=== PATIENT | male | born 1940 | race Two or more races ===

== ENCOUNTER 2020-04-06 02:26 | Inpatient (IN) | payer OTHER, MEDICARE, SELFPAY ==
[~2020-04-06] VITALS: Ht 160 cm; Wt 74.8 kg
[2020-04-06 02:29] VITALS: Ht 160 cm; Wt 74.8 kg
--- NOTE | 2020-04-06 03:39 | NUR ---
RECEIVED PATIENT FROM TENT VIA WHEELCHAIR. HYPOXIA. PLACED ON 6 LITERS OXYGEN VIA NC. NO DISTRESS. PT PLACED IN GOWN, PULSE OX, DIRECTOR OF AGRICULTURE AND BP CUFF.
[2020-04-06 04:06] LABS: BASOPHIL % 0.3 % (0.2-1.5); PLATELET COUNT 210 x10^3mcL (152-348); RED CELL DISTRIBUTION WIDTH 13.9 % (12.1-16.2)
[2020-04-06 04:08] LABS: rbc morphology (normal/abnorm) NORMAL (NORMAL)
[2020-04-06 04:26] LABS: CALCIUM 8.2 mg/dL (8.5-10.1); CARBON DIOXIDE 25.2 mmol/L (21-32); CHLORIDE SERUM 99 mmol/L (98-107); CREATININE SERUM 1.4 mg/dL (0.7-1.3); GLUCOSE SERUM 216 mg/dL (74-106); POTASSIUM SERUM 3.9 mmol/L (3.5-5.1); SODIUM SERUM 135 mmol/L (136-145)
[2020-04-06 04:35] LABS: ALKALINE PHOSPHATASE 230 U/L (46-116); ALT/SGPT 56 U/L (16-63); AST/SGOT 52 U/L (15-37); BILIRUBIN TOTAL 1.08 mg/dL (0.20-1.00); LACTIC DEHYDROGENASE (LDH) 546 U/L (100-190); TOTAL PROTEIN, SERUM 7.4 g/dL (6.4-8.2)
[2020-04-06 04:36] LABS: ALBUMIN 2.6 g/dL (3.4-5.0)
[2020-04-06 04:44] LABS: C REACTIVE PROTEIN 29.9 mg/dL (<=0.9)
[2020-04-06] MEDS ORDERED: ASPIRIN ADULT L81 M3 PO (05:07)
[2020-04-06] MEDS ORDERED: ATORVASTATIN CA20 M1 PO (05:07)
[2020-04-06] MEDS ORDERED: GLIPIZIDE10 M3 PO (05:08)
[2020-04-06] MEDS ORDERED: ENALAPRIL MALEA20 MG PO (05:08)
--- NOTE | 2020-04-06 07:20 | NUR ---
REPORT GIVEN TO RAGHAV ELY
--- NOTE | 2020-04-06 07:33 | NUR ---
PT AAOX4, SERVED BREAKFAST TRAY. DENIES PAIN/DISCOMFORT. TOLERATING 6L O2 VIA NC. DEMONSTRATED UNDERSTANDING CORPORATE INTERN LIGHT. NO FURTHER NEEDS NOTED.
[2020-04-06 10:42] LABS: CHOLESTEROL/HDL RATIO 2.5
--- NOTE | 2020-04-06 10:55 | NUR ---
PT ASSISTED TO BSC. TOLERATED STANDING UP. NOTED SOB WITH EXERTION. DENIED DIZZINESS. PT HAD A FORMED BROWN STOOL; APPEARED SOFT.
--- NOTE | 2020-04-06 13:30 | NUR ---
PT ASSISTED BY JENNIFER TO BSC FOR A LARGE BROWN AND FORMED BM WITHOUT INCIDENT
--- NOTE | 2020-04-06 15:00 | NUR ---
PT URINATED IN URINAL. APPROX 75ML URINE OUTPUT, SIMRAN & HAZY
[2020-04-06 16:22] LABS: UA SPECIFIC GRAVITY 1.025 (1.005-1.035); microscopic required? YES; urine erythrocyte NEGATIVE (NEGATIVE)
[2020-04-06 17:20] LABS: AMPHETAMINE QUAL UR NONE DETECTED (See below)
--- NOTE | 2020-04-06 18:00 | NUR ---
PT ASLEEP ON GURNEY S/F. AROUSABLE TO VERBAL STIMULI. MADE AWARE OF DINNER TRAY. STATES HE DOES NOT WANT TO EAT RIGHT NOW.
--- NOTE | 2020-04-06 18:40 | NUR ---
PT PLACED ON 15L O2 VIA NRB D/T LOW O2 DESAT WITH GOOD WAVE FORM. PT NOTED TO BE ASLEEP. WHEN AWOKEN, PT STATED HE DID NOT HAVE TROUBLE BREATHING. RESPIRATIONS UNLABORED.
--- NOTE | 2020-04-06 19:18 | NUR ---
REPORT GIVEN TO ANYA ELY
--- NOTE | 2020-04-06 20:39 | NUR ---
FIRST CONTACT WITH PT, PT IS SIDE LYING IN GURNEY WITH EYES CLSED. PT EASILY AROUSABLE AND STATES THAT HE IS OK AT THIS TIME. VSS AND WILL CONTINUE TO MONITOR.
--- NOTE | 2020-04-06 21:52 | NUR ---
PT IS SIDE LYING IN GURNEY WITH EYES CLOSED. PT VSS AND NO ACUTE DISTRESS NOTED. WILL CONTINUE TO MONITOR.
--- NOTE | 2020-04-07 01:02 | NUR ---
PT IS SIDE LYING IN GURNEY WITH EYES CLOSED. PT APPEARS WEAK BUT EASILY AROUSABLE. PT BP IS ELEVATED AT 171/66, DR. HOPE IN ED AND MADE AWARE. AWAITING MEDICATION ORDER. PT ON FULL CARDIAC AND O2 MONITORS. WILL CONTINUE TO MONITOR CLOSELY.
--- NOTE | 2020-04-07 02:17 | NUR ---
PT LAYING IN GURNEY WITH EYES CLOSED. PT EASILY AROUSABLE AND VSS, PT ON 5 LITERS O2 VIA NRB. PT TOLERATING WELL AT THIS TIME. WILL CONTINUE TO MONITOR.
--- NOTE | 2020-04-07 03:27 | NUR ---
PT REQUESTED WATER AND A WRINAL. PT VOIDED [id number] ML OF DARK ORANGE URINE. REPOSITIONED PT TO POSITION OF COMFORT. PT EYES CLOSED AND WILL CONTINUE TO MONITOR. PT 02 SAT IMPROVING TO 88% AT THIS TIME.
--- NOTE | 2020-04-07 06:01 | NUR ---
PT REMAINS SIDE LYING IN GURNEY. PT VSS, AND NO ACUTE DISTRESS NOTED. WILL CONTINUE TO MONITOR CLOSELY
--- NOTE | 2020-04-07 07:40 | NUR ---
GAVE REPORT TO ASIM ELY TO ASSUME CARE OF PT.
--- NOTE | 2020-04-07 11:00 | NUR ---
ATTEMPTS MADE TO CALL PRIMARY NURSE FOR ADMIT TO ROOM. NURSES REFUSES TO COME TO PHONE. GIOVANY ELY PRIMARY UNHELPFUL AT THIS TIME. DECLINED TO ASSIST IN ASSUMING REPORT.
--- NOTE | 2020-04-07 11:10 | NUR ---
NUMBEROUS CALLS PLACED. BY MYSELF RN AND UNIT SEC PJ. STAFF ON FLOOR CONTINUE TO HANG PHONE UP. NUMEROUS ATTEMPTS TO ELICIT ASSISTANCE FROM BRYANT ELY UNSUCCESSFUL.
--- NOTE | 2020-04-07 11:49 | NUR ---
I CALLED REPORT TO ANGI REGARDING THIS PT. PT WILL BE GOING TO ROOM 253B VIA LYNNE WITH JASBIR AND EMT STEPHANIE.
--- NOTE | 2020-04-07 12:03 | NUR ---
REPORT RECIEVED FROM CHARGE NURSE INDERJIT: PER CHARGE NURSE THE PRIMARY RN TOKO WAS BUSY. REPORT WAS ATTEMPTED TO BE RECIVED BUT WIRELESS PHONE KEPT DISCONNECTING. CHARGE NURSE DENTON ISRAEL. PATIENT IN 253B, ALERT AND ORIENTED AZERI SPEAKING. ON HF15L
--- NOTE | 2020-04-07 12:29 | NUR ---
ELECITED ASSISTANCE IN INDERJIT CALLING REPORT TO FLOOR. UPON ARRIVAL TO FLOOR REGISTRY PRIMARY NURSE NAUN REMAINED RUDE AND OPPOSITIONAL. RAVINDRA OFFERED NO ASSISTANCE AND BECAME OBSTINANT. AND BEGAN TO DEGRADE THE [employer].
[2020-04-07 13:41] VITALS: BP 99/60
[2020-04-07 16:31] VITALS: BP 97/55
[2020-04-07 16:47] LABS: BASOPHIL % 0.2 % (0.2-1.5); PLATELET COUNT 211 x10^3mcL (152-348); RED CELL DISTRIBUTION WIDTH 13.9 % (12.1-16.2)
[2020-04-07 16:54] LABS: CALCIUM 8.1 mg/dL (8.5-10.1); CARBON DIOXIDE 25.2 mmol/L (21-32); CHLORIDE SERUM 106 mmol/L (98-107); GLUCOSE SERUM 141 mg/dL (74-106); MAGNESIUM 2.7 mg/dL (1.8-2.4); POTASSIUM SERUM 3.8 mmol/L (3.5-5.1); SODIUM SERUM 141 mmol/L (136-145)
--- NOTE | 2020-04-07 19:30 | NUR ---
RECIEVED PT FROM AM RN. PT IN ISOLATION PRECAUTIONS FOR POSSIBLE COVID. PT A&OX4, LUXEMBOURGISH SPEAKING. S1S2 HEARD, DENIES CHEST PAIN. LUNG SOUNDS DIMINISHED LO, BREATHING E/U ON 15L NRB. PT SATTING WELL. DENIES SOB AT THIS TIME. BOWEL SOUNDS ACTIVE, ABDOMEN SOFT. PT ON TELE #21 NSR. PT HAS IV TO RAC INTACT AND PATENT SALINE LOCKED. PT HAS NO CONCERNS AT THIS TIME. CALL LIGHT IN REACH, WILL CONTINUE TO MONITOR.
[2020-04-07 22:21] VITALS: BP 121/48
--- NOTE | 2020-04-08 06:40 | NUR ---
PT REMAINED STABLE THROUGHOUT THE NIGHT, NO SIGNIFICANT CHANGES. NO EPISODES OF ACUTE DISTRESS OR DESATURATION. PTS BLOOD GLUCOSE CHECKED THIS AM NO COVERAGE NEEDED. PTS IV TO RAC INTACT AND PATENT, SALINE LOCKED. PT HAS NO QUESTIONS OR CONCERNS. CALL LIGHT IN REACH. WILL CONTINUE TO MONITOR. WILL ENDORSE ALL CARE TO AM RN.
[2020-04-08 06:47] VITALS: BP 139/53
--- NOTE | 2020-04-08 08:18 | NUR ---
PATIENT IS A 79 YEAR OLD MALE ADMITTED FOR COVID PNA, + COVID ON 04/06 RENNY, PCR IS PENDING AT THIS TIME. PATIENT DIMINISHED LUNGS ON NRB 15L. GENERALIZED WEAKNESS. PATIENT STARTED REMDESEVIR YESTERDAY FIRST DOSE WILL CONTINUE TODAY. NO ORDER FOR CONVALESANT PLASMA AT THIS TIME. PATIENT ALERT AND ORIENTED [place]TH KOREAN SPEAKING, IV INTACT AND PATENT RAC.
[2020-04-08 09:32] VITALS: BP 139/85
[2020-04-08 12:00] VITALS: BP 102/51
--- NOTE | 2020-04-08 12:21 | NUR ---
PATIENT DSATURATING TO 80%-77% CALLED RT DUE TO HIM BEING ON NRB 15L. RT COULD NOT GET HIM ABOVE 88% HE WAS PLACED ON OXYMIZER 10L WITH A CHANCE TO INCREASE.
[2020-04-08 13:13] LABS: BILIRUBIN DIRECT 0.67 mg/dL (0.0-0.2); BILIRUBIN TOTAL 0.87 mg/dL (0.20-1.00); TOTAL PROTEIN, SERUM 6.2 g/dL (6.4-8.2)
[2020-04-08 13:37] LABS: ALBUMIN 1.8 g/dL (3.4-5.0)
[2020-04-08 17:06] LABS: BASOPHIL % 0.1 % (0.2-1.5); PLATELET COUNT 226 x10^3mcL (152-348); RED CELL DISTRIBUTION WIDTH 14.4 % (12.1-16.2)
[2020-04-08 17:15] LABS: CALCIUM 8.1 mg/dL (8.5-10.1); CARBON DIOXIDE 26.2 mmol/L (21-32); CHLORIDE SERUM 109 mmol/L (98-107); GLUCOSE SERUM 179 mg/dL (74-106); MAGNESIUM 2.6 mg/dL (1.8-2.4); POTASSIUM SERUM 4.2 mmol/L (3.5-5.1); SODIUM SERUM 144 mmol/L (136-145)
[2020-04-08 17:31] VITALS: BP 114/58
--- NOTE | 2020-04-08 19:40 | NUR ---
RECEIVED REPORT FROM DAY SHIFT RN. PT RESTING IN BED WITH EYES CLOSED. AROUSABLE WITH VERBAL STIMULI. ORIENTED X4. NO C/O CHEST PAIN. DIMINISHED LUNG SOUNDS LO. ON O2 15L VIA OXYMIZER + 12 L NONREBREATHER MASK. IV TO RAC, PATENT AND INTACT. SAFETY MEASURES IN LACE. BED IN LOWEST POSITION. SIDE RAILS UP X2. DEMONSTRATED HOW TO CALL IF ASSISTANCE IS NEEDED. CALL LIGHT WITHIN REACH.
--- NOTE | 2020-04-08 19:45 | NUR ---
RECEIVED REPORT FROM DAY SHIFT RN. PT RESTING IN BED WATCHING TV. AA&O X4. NO SOB ON O2 2L VIA NC. DIMINISHED LUNG SOUNDS LO. 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 MULTIPLE SCATTERED DRY SCABD TO BUE AND BLE. NO IV ACCESS. PT REFUSING IV RESTART. SAFETY MEASURES IN PLACE. BED IN LOWEST POSITION. SIDE RAILSUP X2. INSTRUCTED PT TO CALL FOR ASSISTANCE. COMMODE AT BEDSIDE.
[2020-04-08 21:51] VITALS: BP 126/55
[2020-04-09 05:10] VITALS: BP 124/51
--- NOTE | 2020-04-09 06:59 | NUR ---
PT RESTED IN LONG INTERVALS. NO C/O CHEST PAIN. ON O2 15L OXYMIZER + 12L NRB MASK. O2 SAT 92-97%. IV TO RAC, SALINE LOCKED. SAFETY MEASURES MAINTAINED. CALL LIGHT WITHIN REACH. WILL ENDORSE CONTINUITY OF CARE TO DAY SHIFT RN.
[2020-04-09 07:35] LABS: BASOPHIL % 0.1 % (0.2-1.5); PLATELET COUNT 237 x10^3mcL (152-348)
[2020-04-09 07:53] LABS: CALCIUM 8.3 mg/dL (8.5-10.1); CARBON DIOXIDE 27.3 mmol/L (21-32); CHLORIDE SERUM 107 mmol/L (98-107); CREATININE SERUM 0.9 mg/dL (0.7-1.3); GLUCOSE SERUM 165 mg/dL (74-106); POTASSIUM SERUM 4.1 mmol/L (3.5-5.1); SODIUM SERUM 142 mmol/L (136-145)
[2020-04-09 08:13] LABS: RED CELL DISTRIBUTION WIDTH 14.6 % (12.1-16.2)
[2020-04-09 08:46] VITALS: BP 122/44
[2020-04-09 09:27] LABS: BILIRUBIN DIRECT 0.45 mg/dL (0.0-0.2); BILIRUBIN TOTAL 0.65 mg/dL (0.20-1.00); TOTAL PROTEIN, SERUM 6.3 g/dL (6.4-8.2)
[2020-04-09 09:30] LABS: ALBUMIN 1.9 g/dL (3.4-5.0)
--- NOTE | 2020-04-09 10:46 | NUR ---
PATIENT IS AOX4, SINUS JORGE, RESPIRATIONS SHALLOW/UNLABORED ON 15LNONREBREATHER AND 15L OXYMIZER. ENCOURAGED PATIENT TO DO DEEP BREATHING. PATIENT VERBALIZED UNDERSTANDING. TOLERATING MEALS WELL WITH NO N/V. UPDATED ON PLAN OF CARE. WILL CONTINUE TO MONITOR.
[2020-04-09 13:27] VITALS: BP 123/62
[2020-04-09 16:20] VITALS: BP 101/70
--- NOTE | 2020-04-09 17:21 | NUR ---
PLASMA TRANSFUSED WITH NO S/S REACTION. VITAL SIGNS STABLE.
--- NOTE | 2020-04-09 18:34 | NUR ---
PATIENT REMAINS ON 15L NRB + 15L OXYMIZER SPO2 89-93% TOLERATED PRONING. SINUS JORGE-SINUS RYTHM. ATE MEALS WELL WITH NO N/V. UPDATED DAUGHTER ARIEL OF PLAN OF CARE. WILL ENDORSE TO NIGHT RN.
--- NOTE | 2020-04-09 19:35 | NUR ---
RECEIVED REPORT FROM DAY SHIFT RN. PT RESTING IN BED. AA&O X4. ON 15L OXYMIZER + 15L NONREBREATHER MASK. NO C/O PAIN AT THIS TIME. IV SALINE LOCKED TO RFA. SAFETY MEASURES IN PLACE. BED IN LOWEST POSITION. SIDE RAILS UP X2. DEMONSTRATED HOW TO CALL FOR ASSISTANCE. CALL LIGHT WITHIN REACH.
[2020-04-09 21:54] VITALS: BP 121/54
[2020-04-10 06:02] VITALS: BP 136/63
--- NOTE | 2020-04-10 06:59 | NUR ---
PT RESTED IN LONG INTERVALS. NO ACUTE CHANGES NOTED DURING SHIFT. ON 15L OXYMIZER AND 15L NRB MASK. 02 SAT 99%. IV TO RFA, SALINE LOCKED. SAFETY MEASURES MAINTAINED. CALL LIGHT WITHIN REACH. WILL ENDORSE CONTINUITY OF CARE TO ONCOMING RN.
[2020-04-10 07:48] VITALS: BP 124/57
[2020-04-10 07:51] LABS: BASOPHIL % 0.2 % (0.2-1.5); PLATELET COUNT 279 x10^3mcL (152-348); RED CELL DISTRIBUTION WIDTH 14.5 % (12.1-16.2)
[2020-04-10 08:05] LABS: CALCIUM 7.8 mg/dL (8.5-10.1); CARBON DIOXIDE 28.9 mmol/L (21-32); CHLORIDE SERUM 109 mmol/L (98-107); CREATININE SERUM 0.8 mg/dL (0.7-1.3); GLUCOSE SERUM 70 mg/dL (74-106); MAGNESIUM 2.7 mg/dL (1.8-2.4); PHOSPHOROUS 3.2 mg/dL (2.5-4.9); SODIUM SERUM 143 mmol/L (136-145)
--- NOTE | 2020-04-10 08:17 | NUR ---
RECEIVED AWAKE AND ALERT. ON O2 15L NRB AND 15L OXYMIZER SATS 88-90%. MILD SOB NOTED WITH ACTIVITIES. VS WNL. NO C/O PAIN OR DISCOMFORT AT THIS TIME. CALL LIGHT WITHIN REACH. WILL CONTINUE WITH PLAN OF CARE.
[2020-04-10 08:51] LABS: BILIRUBIN DIRECT 0.31 mg/dL (0.0-0.2); BILIRUBIN TOTAL 0.5 mg/dL (0.20-1.00)
[2020-04-10 08:58] LABS: ALBUMIN 1.9 g/dL (3.4-5.0); TOTAL PROTEIN, SERUM 6.1 g/dL (6.4-8.2)
[2020-04-10 12:00] VITALS: BP 135/57
[2020-04-10 17:51] VITALS: BP 127/48; BP 26127/4
--- NOTE | 2020-04-10 19:10 | NUR ---
PT. REPORT RECIEVED FROM DAY SHIFT NURSE, PT. RESTING IN BED, A&OX4, EASILY AROUSABLE, UZBEK SPEAKING, BUT ABLE TO LET NEEDS KNOWN, DENIES WILLARD/ DIZZINESS, RR EVEN AND UNLABORED ON 15 L NRB & 15 L OXYMIZER, TELE 21 SB, DENIES CHEST PAIN/ PRESSURE, RFA 22 G INTACT AND WNL, BED IN LOWEST POSITION, CALL LIGHT WITHIN REACH, SR UPX2, WILL CONT TO MONITOR.
--- NOTE | 2020-04-10 19:13 | NUR ---
PT REMAINS IN 15L NSR AND 15L OXYMIZER, STATS AT 88-90%. VITAL SIGNS BP, AND HR WITHIN NORMAL LIMITS. PT ENCOURAGED TO SIDE SHIFT TO RIGHT AND LEFT SIDE, AND TURN TO PRONE POSTION AT LEAST EVERY 2 HOURS. WILL ENDORSE CARE TO INCOMING NURSE.
--- NOTE | 2020-04-10 19:35 | NUR ---
NURSING CO-SIGN THE DOCUMENTATION ENTERED BY JHOANA SEQUEIRA HAS BEEN REVIEWED. REVIEWED/CO-SIGNED BY: Lary Boone DOCUMENTATION DONE BY:DANIELA SPANN
[2020-04-10 20:31] VITALS: BP 122/49
--- NOTE | 2020-04-11 03:58 | NUR ---
PT. RESTING IN BED, NO ACUTE CHANGE/ DISTRESS NOTED, RR EVEN AND UNLABORED ON 15 L NRB + 15 L OXY, CHEST RISE SYMT, TELE 21 SB, RFA IV INTACT AND WNL, BED IN LOWEST POSITION, CALL LIGHT WITHIN REACH, SR UPX2, WILL CONT TO MONITOR.
--- NOTE | 2020-04-11 04:35 | NUR ---
PT. SPO2 AT 75% RT NOTIFIED AND GOT AN ORDER FROM MD FOR RT SERVICE, CURRENTLY WAITING FOR RT TO COME SEE PT. WILL CONT TO MONITOR.
--- NOTE | 2020-04-11 05:09 | NUR ---
RT AT BEDSIDE, RT ASKED TO NOTIFY THE DRLiane ABOUT BIPAP ORDER, DR. GLASS HAS BEEN NOTIFIED.
[2020-04-11 05:18] VITALS: BP 178/70
--- NOTE | 2020-04-11 05:30 | NUR ---
PT. HAS BEEN MOVED AND IS IN BIPAP, PT. SPO2 CURRENTLY 96%, WILL CONT TO MONITOR.
[2020-04-11 05:35] VITALS: BP 178/70
--- NOTE | 2020-04-11 07:58 | NUR ---
RECEIVED AWAKE AND ALERT. ON BIPAP AT FIO2 OF 100% SATS FROM 92-94%. VS WNL. NO C/O PAIN OR DISCOMFORT AT THIS TIME. CALL LIGHT WITHIN REACH AND SAFETY MEASURES IN PLACE. WILL CONTINUE WITH PLAN OF CARE.
[2020-04-11 08:42] VITALS: BP 131/54
[2020-04-11 13:16] VITALS: BP 133/49
[2020-04-11 13:49] LABS: CALCIUM 7.9 mg/dL (8.5-10.1); CARBON DIOXIDE 31.5 mmol/L (21-32); CHLORIDE SERUM 103 mmol/L (98-107); CREATININE SERUM 0.8 mg/dL (0.7-1.3); GLUCOSE SERUM 86 mg/dL (74-106); MAGNESIUM 2.4 mg/dL (1.8-2.4); PHOSPHOROUS 4.4 mg/dL (2.5-4.9); POTASSIUM SERUM 4.2 mmol/L (3.5-5.1); SODIUM SERUM 142 mmol/L (136-145)
[2020-04-11 13:50] LABS: BILIRUBIN DIRECT 0.51 mg/dL (0.0-0.2); BILIRUBIN TOTAL 0.7 mg/dL (0.20-1.00); TOTAL PROTEIN, SERUM 6.3 g/dL (6.4-8.2)
[2020-04-11 13:54] LABS: ALBUMIN 1.9 g/dL (3.4-5.0)
[2020-04-11 13:56] LABS: BASOPHIL % 0.2 % (0.2-1.5); PLATELET COUNT 264 x10^3mcL (152-348)
--- NOTE | 2020-04-11 13:58 | NUR ---
FAM CATH INSERTED PER ORDER AND DRAINING CLEAR YELLOW URINE TO GRAVITY. PT TOLERATED WELL.
[2020-04-11 14:14] LABS: RED CELL DISTRIBUTION WIDTH 14.8 % (12.1-16.2)
[2020-04-11 16:37] VITALS: BP 142/62
--- NOTE | 2020-04-11 18:41 | NUR ---
PT REMAIN AWAKE AND ALERT. ON BIPAP AT 16/10 , RATE 16 AND FIO2 100% SATS 98%. VS REMAINS WNL. SAFETY MEASURES IN PLACE. CALL LIGHT WITHIN REACH. WILL BE ENDORSED TO INCOMING SHIFT.
--- NOTE | 2020-04-11 19:53 | NUR ---
RECEIVED PT FROM DAY SHIFT NURSE. PT A/OX4. ABLE TO MAKE NEEDS KNOWN. SPEECH CLEAR. ON TELE#21 READING NSR AT 60 BPM. PT DENIES CHEST PAIN OR PRESSURE AT THIS TIME. PULSES PALPABLE. NO EDEMA NOTED. RR EVEN AND UNLABORED ON BIPAP FIO2 100, O2 SATURATION 98%. NO SIGNS OF RESP DISTRESS NOTED. FAM CATH IN PLACE DRAINING YELLOW URINE. GENERALIZED WEAKNESS NOTED. SKIN INTACT. NO C/O PAIN OR DISCOMFORT. IV TO RFA SALINE LOCKED, PATENT AND INTACT. CALL LIGHT WIHIN REACH. BED IN LOWEST POSITION. ON DROPLET/CONTACT PRECAUTIONS FOR COVID. WILL CONTINUE TO MONITOR.
[2020-04-11 21:34] VITALS: BP 114/66
--- NOTE | 2020-04-12 00:48 | NUR ---
PT REPORTED NAUSEA/VOMITTING AT THIS TIME. PROVIDED PT WITH NEW GOWN AND BLANKETS. MEDICATED PT PER JUN. INSTRUCTED PT TO REMOVE BIPAP MASK AND VOMIT IN EMESIS BAG. PT VERBALIZED UNDERSTANDING. PT REPORTED NOT FEELING WELL. CALL LIGHT WITHIN REACH. BED IN LOWEST POSITION. WILL CONTINUE TO MONITOR.
[2020-04-12 06:18] VITALS: BP 148/71
[2020-04-12 07:15] LABS: BASOPHIL % 0.4 % (0.2-1.5); PLATELET COUNT 251 x10^3mcL (152-348)
[2020-04-12 07:37] LABS: RED CELL DISTRIBUTION WIDTH 14.9 % (12.1-16.2)
[2020-04-12 07:41] LABS: CALCIUM 8.2 mg/dL (8.5-10.1); CARBON DIOXIDE 27.8 mmol/L (21-32); CHLORIDE SERUM 107 mmol/L (98-107); GLUCOSE SERUM 132 mg/dL (74-106); MAGNESIUM 2.9 mg/dL (1.8-2.4); PHOSPHOROUS 4.2 mg/dL (2.5-4.9); POTASSIUM SERUM 4.3 mmol/L (3.5-5.1); SODIUM SERUM 146 mmol/L (136-145)
--- NOTE | 2020-04-12 07:54 | NUR ---
PT RESTING IN BED AT THIS TIME. PT C/O BEING TIRED, PROVIDED PT WITH REASSURANCE AND WORDS OF ENCOURAGEMENT. PT REPORTED N/V AT THIS TIME, WILL ENDORSE CARE TO ONCOMING SHIFT NURSE. IV PATENT AND INTACT, NO SIGNS OF INFILTRATION NOTED. FAM CATH IN PLACE DRAINGING YELLOW URINE. RR EVEN AND MILDLY LABORED ON BIPAP FIO2 100% O2 SATURATION 93%. PT DESATURATED TWICE THROUGHOUT THE NIGHT, REINFORCED BIPAP MASK. O2 SAT INCREASED BACK TO 90'S. CALL LIGHT WITHIN REACH. CARE ENDORSED TO DAY SHIFT NURSE.
[2020-04-12 08:11] VITALS: BP 147/63
[2020-04-12 09:15] LABS: CREATININE SERUM 0.9 mg/dL (0.7-1.3)
--- NOTE | 2020-04-12 09:22 | NUR ---
RECEIVED AWAKE AND ALERT. C/O NAUSEA AND HAD VOMITTED APPROX 20ML OF BROWN EMESIS. ZOFRAN GIVEN IVP WITH FAIR RELIEF. PT RECEIVED ON BIPAP AND O2 SATS 92% ON CURRENT SETTING. OCC. DRY COUGH NOTED. NO C/O PAIN AT THIS TIME. CALL LIGHT WITHIN REACH AND SAFETY MEASURES IN PLACE. WILL CONTINUE WITH PLAN OF CARE.
[2020-04-12 12:06] VITALS: BP 135/61
--- NOTE | 2020-04-12 12:38 | NUR ---
PER RT PT IS UNSTABLE FOR TRANFER TO CT. DR. BONILLA AWARE. PT REPOSITIONED IN BED FOR COMFORT. O2 SATS 92% ON BIPAP SETTING 14/10, RR 16 AND FIO2 100%.
--- NOTE | 2020-04-12 16:16 | NUR ---
FOUND ON BIPAP SETTING OF 14/11, RATE 16 AND FIO2 90%. O2 SATS 89-92% CURRENTLY. PT REPOSITIONED IN BED FOR COMFORT. CALL LIGHT WITHIN REACH.
[2020-04-12 16:33] VITALS: BP 128/62
--- NOTE | 2020-04-12 17:38 | NUR ---
MIDLINE INSERTED TO JAYME, PATENT. PT TOLERATED WELL
--- NOTE | 2020-04-12 19:16 | NUR ---
RESTING AT THIS TIME. REMAINS ON BIPAP AND O2 SATS 92% ON CURRENT SETTING. NO C/O PAIN OR DISCOMFORT AT THIS TIME. PER PICC LINE NURSE OK TO USE MIDLINE. PT REPOSITIONED FOR COMFORT. CALL LIGHT WITHIN REACH. WILL BE ENDORSED TO INCOMING SHIFT.
--- NOTE | 2020-04-12 20:27 | NUR ---
RECEIVED PT FROM DAY SHIFT NURSE. PT SEEN AWAKE RESTING IN BED AT THIS TIME. A/OX4. ABLE TO MAKE NEEDS KNOWN. ON TELE#21 READING NSR. NO S/S OF CHEST PAIN OR PRESSURE. PULSES PALPABLE. NO EDEMA NTED. RR EVEN AND UNLABORED ON BIPAP (14/2, RT 16, FIO2 90%, O2 SAT 90%). NO SIGNS OF RESP DISTRESS. FAM CATH IN PLACE DRAINING SIMRAN URINE. GENERALIZED WEAKNESS NOTED. SKIN INTACT. NO C/O PAIN OR DISCOMFORT NOTED. PT HAS MIDLINE JAYME AND RFA IV PATENT AND INTACT. NO SIGNS OF ACUTE DISTRESS NOTED. CALL LIGHT WITHIN REACH. ON DROPLET/CONTACT ISOLATION FOR COVID. WILL CONTINUE TO MONITOR.
[2020-04-12 21:57] VITALS: BP 144/63
--- NOTE | 2020-04-13 00:53 | NUR ---
PT RESTING COMFORTABLY IN BED AT THIS TIME. NO SIGNS OF ACUTE DISTRESS NOTED. RT SEEN PT ABOUT 20 MIN AGO. RR EVEN AND UNLABORED ON BIPAP MACHINE. RT CHANGED BIPAP SETTINGS TO 12/6, RATE OF 16, AND FIO2 OF 90%. NO C/O PAIN OR DISCOMFORT. PT REPORTED FEELING NAUSEA, MEDICATED PT PER JUN. CALL LIGHT WITHIN REACH. WILL CONTINUE TO MONITOR.
[2020-04-13 05:54] VITALS: BP 112/61
--- NOTE | 2020-04-13 06:51 | NUR ---
PT AWAKE RESTING IN BED AT THIS TIME. NO SIGNS OF ACUTE DISTRESS NOTED. RR EVEN AND UNLABORED ON BIPAP (03/08, RT 16, FIO2 90%). NO C/O PAIN OR DISCOMFORT. ALL NEEDS/CONCERNS ADDRESSED THROUGHOUT THE SHIFT. WILL ENDORSE CARE TO ONCOMING SHIFT NURSE.
--- NOTE | 2020-04-13 08:14 | NUR ---
RECEIVED PT FROM NIGHT NURSE. PT AWAKE AND ALERT. ABLE TO COMMUNICATE NEEDS. ON BIPAP 16 BREATHS MIN WITH 90% FIO2, SAO2 94%. DENIES PAIN. NO ACUTE DISTRESS AT THIS TIME. WILL CONTINUE TO MONITOR.
[2020-04-13 08:24] VITALS: BP 137/63
[2020-04-13 08:46] LABS: BASOPHIL % 0.1 % (0.2-1.5); PLATELET COUNT 273 x10^3mcL (152-348)
[2020-04-13 08:55] LABS: CALCIUM 7.8 mg/dL (8.5-10.1); CHLORIDE SERUM 105 mmol/L (98-107); CREATININE SERUM 1.1 mg/dL (0.7-1.3); GLUCOSE SERUM 195 mg/dL (74-106); MAGNESIUM 2.9 mg/dL (1.8-2.4); PHOSPHOROUS 3.8 mg/dL (2.5-4.9); POTASSIUM SERUM 3.7 mmol/L (3.5-5.1); SODIUM SERUM 143 mmol/L (136-145)
[2020-04-13 09:48] LABS: RED CELL DISTRIBUTION WIDTH 14.8 % (12.1-16.2)
--- NOTE | 2020-04-13 12:41 | NUR ---
Initial Nutrition Assessment 230A Marii Horner C - 79/M Dx: Respiratory Failure and COVID PNA PMHx: DM, HTN PSHx: none Labs: (04/13) POCBG 180/ 230H (04/12) NA 146H, BUN 40H, BG 132H, CA 8.2L, MAG 2.9H, BILI .51H, AST 46H, ALK 248H, ALB 1.9L Meds: Decadron, VIT D, VIT C, Colace, Aspirin, Lasix, Lovenox, Humulin, Zosyn, Zofran, Lantus Diet: Regular PO intake since admission: refused last 3 meals, prior to that had average intake 80% x 6 Ht: 160.02cm/ 5'3 Wt: 74.8kg/ 165# BMI: 29.2 Bed scale: unknown IBW: 124#/ 56.4kg %IBW: 133% UBW: no answer/iso Age: 79 Food Allergies: NKFA Skin condition: skin intact Samy: 16 Edema: facial edema from bipap mask Last BM: 04/12 Per H&P: Patient is a 79-year-old male with pmhx of DM and HTN who comes to the ED for complains of SOB and cough. he reports that he got tested postive for covid 19 last week, however he didn't have any symptoms initially. He began to feel weakness and shortness of breath 4 days ago. his shortness of breath is progressively getting worse and gets exacerbated by exertion. He denies any fever, any loss of taste or smell. He denies any other symptoms, denies any chest pain, nausea, vomit, diarrhea or constipation. RD Note (04/13): Patient has been in isolation for COVID 19 with increasing O2 requirements currently on NC and BIPAP intermittent. With the increased BIPAP requirement patient has not been able to eat all meals. Was not able to get a hold of patient, will recommend adding Glucerna BID to supplement needs with difficulty to eat from O2. Currently he has refused last 3 meals, prior to that was eating fine. Will monitor. Problem with: N/V/D/C: denies all Problems with: Chewing: Swallowing: none Current appetite: current poor, prior day eating well Recent wt change: unknown %wt change: unknown Vitamin/Supplement use: unknown Special diet at home: regular diet Physical activity: unknown Nutrition education given (specify specific nutrition education and handout given): no Food-drug interactions? Education given? No Estimated Nutritional Needs Based on Council (56.4kg) body weight Energy: 1692 - 1974 kcal/day (30 - 35kcal/kg) viral infection Protein: 68 - 85 g/day (g/kg) Fluid: 1692- 1974 mL/day (1 mL/kcal) or per MD Nutrition Diagnosis: Increased nutrient needs r/t viral infection aeb SOB, weakness, meals refused d/t BIPAP Intervention 1. Continue with a liberalized Regular diet to encourage po intake. 2. Consider 1 can Glucerna BID to support oral intake with BIPAP difficulty. Monitor/Evaluate Goal: PO intake at least 75% of estimated needs Monitor: PO intake, Labs, GI function F/U in 2-3 days as high risk 04/15-
--- NOTE | 2020-04-13 12:42 | NUR ---
1. Continue with a liberalized Regular diet to encourage po intake. 2. Consider 1 can Glucerna BID to support oral intake with BIPAP difficulty.
[2020-04-13 16:16] VITALS: BP 121/60
--- NOTE | 2020-04-13 20:05 | NUR ---
RECEIVED PT FROM AM NURSE, PT AA/O X 4, ABLE TO MAKE NEEDS KNOWN, DENIES HEADACHE/ DIZZINESS. TELE MONITOR #21, NSR W/ BBB. DENIES CHEST PAIN/ CHEST PRESSURE. PULSES PALPABLE, NO EDEMA. RESPIRATIONS E/U ON BIPAP, FIO2 80%. SPO2 RANGING FROM 95-98%. ACTIVE BS X 4 QUADS, ABD SOFT AND NON TENDER. DENIES N/V/D F/C IN PLACE, DRAINING YELLOW URINE, DRAINING TO GRAVITY. GENERALIZED WEAKNESS. SKIN INTACT, DENIES PAIN. IV TO RFA INTACT, IV PATENT AND FLUSHING WELL, NO ERYTHEMA. MIDLINE TO JAYME PATENT, GOOD BLOOD RETURN, FLUSHING WELL, NO ERYTHEMA. DROPLET ISOLATION PRECAUTIONS IN PLACE FOR POSITIVE COVID 19 STATUS. ALL NEEDS MET, CALL BUTTON WITHIN REACH, WILL CONTINUE TO MONITOR.
--- NOTE | 2020-04-13 20:43 | NUR ---
PT REMAINED STABLE LONG BIPAP IS IN PLACE. WILL DESAT TO 60S QUICKLY. TAKES SEVERAL MINUTES TO RETURN TO BASELINE AFTER REPLACING BIPAP AFTER DRINKING WATER OR TAKING MEDS. CONSISTENTLY FREE OF ACUTE DISTRESS. ENDORSED TO GREEN MARKETER NURSE.
[2020-04-13 21:02] VITALS: BP 126/65
--- NOTE | 2020-04-13 22:55 | NUR ---
RT ASSESSED PT AND DECREASED FIO2 TO 80%. PT TOLERATING WELL. WILL CONTINUE TO MONITOR.
--- NOTE | 2020-04-13 23:33 | NUR ---
DECREASED FIO2 FROM 90% TO 80%.
--- NOTE | 2020-04-14 00:15 | NUR ---
PT IN BED RESTING WITH EYES CLOSED, BUT EASILY AROUSABLE. RESPIRATIONS E/U ON BIPAP, FIO2 80%. SPO2 DROPPED TO THE 70'S WHEN THE BIPAP MASK WAS OFF DURING MEDICATION PASS AND WHILE DRINKING WATER. WHEN MASK WAS PUT BACK ON, SPO2 INCREASED TO THE MID 90'S. NO RESPIRATORY DISTRESS AT THIS TIME. NO ACUTE DISTRESS AT THIS TIME. CALL BUTTON WITHIN REACH, WILL CONTINUE TO MONITOR.
[2020-04-14 06:31] VITALS: BP 133/62
--- NOTE | 2020-04-14 06:34 | NUR ---
PT SLEPT IN INTERVALS THROUGHOUT THE NIGHT BUT EASILY AROUSABLE. NO ACUTE CHANGES OVERNIGHT, WILL ENDORSE CARE TO AM NURSE.
--- NOTE | 2020-04-14 07:05 | NUR ---
RECEIVED PATIENT FROM PM NURSE, ALERT AND ORIENTED X 3, [place] SPEAKING, ABLE TO VERBALIZE NEEDS, LUNG SOUNDS DIMINISHED, PATIENT ON BIPAP, GENERALIZED WEAKNESS, ON TELEMTRY, BOWEL SOUNDS ACTIVE, SKIN INTACT, PEDAL PULSES PRESENT, NON PITTING EDEMA IN BUE AND BLE, FAM CATH IN PLACE DRAINING SIMRAN URINE, PATIENT PLEASANT AND COOPERATIVE
[2020-04-14 08:57] VITALS: BP 121/63
[2020-04-14 09:02] LABS: CARBON DIOXIDE 31.5 mmol/L (21-32); CHLORIDE SERUM 108 mmol/L (98-107); CREATININE SERUM 0.9 mg/dL (0.7-1.3); GLUCOSE SERUM 185 mg/dL (74-106); PHOSPHOROUS 3.1 mg/dL (2.5-4.9); POTASSIUM SERUM 3.9 mmol/L (3.5-5.1); SODIUM SERUM 145 mmol/L (136-145)
[2020-04-14 09:19] LABS: BASOPHIL % 0.1 % (0.2-1.5); PLATELET COUNT 278 x10^3mcL (152-348); RED CELL DISTRIBUTION WIDTH 14.4 % (12.1-16.2)
--- NOTE | 2020-04-14 12:50 | NUR ---
RECEIVED PT FROM . PT STABLE AT THIS TIME. BP 95/63, HR 86, RR 22, 02 SAT 95%, TEMP 96.6. PT DENIES PAIN AT THIS TIME. ALL QUESTIONS AND CONCERNS ADDRESSED.
--- NOTE | 2020-04-14 13:10 | NUR ---
IN TO SEE PT. PT REMAINS STABLE AT THIS TIME. PT ENCOURAGED TO PRONE AND LAY ON SIDE. ALL QUESTIONS AND CONCERNS ADDRESSED.
[2020-04-14 13:45] VITALS: BP 95/63
--- NOTE | 2020-04-14 15:15 | NUR ---
IN TO SEE PT. PT REMAINS STABLE AT THIS TIME. PT ENCOURAGED TO LAY ON SIDE AND PRONE. ALL QUESITONS AND CONCERNS ADDRESSED.
--- NOTE | 2020-04-14 16:06 | NUR ---
RECEIVED CALL FROM TELE STATION @1600 THAT PT WAS DESATURATING IN 60s. FOUND PT UNRESPONSIVE. RT AT BEDSIDE. RAPID RESPONSE INITIATED @1606, NO PULSE FOUND, CODE BLUE INITIATED IMMEDIATELY.
--- NOTE | 2020-04-14 19:40 | NUR ---
RECEIVED REPORT FROM DAY SHIFT RN. PT AT 1619. WAITING FOR TERRAZZO LAYER HELPER TO CALL BACK.
--- NOTE | 2020-04-14 22:41 | NUR ---
RELEASED BY PHARMACEUTICAL LABORATORY TECHNICIANCARLY.
--- NOTE | 2020-04-15 00:30 | NUR ---
POST MORTEM CARE DONE. PERSONAL BELONGINGS IN THE PT'S BELONGINGS BAG.
--- NOTE | 2020-04-15 00:42 | NUR ---
BODY TRANSFERRED TO [facility] [place].
== END 2020-04-14 23:59 | DRG 720 ==
LOC: ED 02:26 → DU 03:51
PROVIDERS: Emergency Medicine; Family Medicine; ADMIT Internal Medicine; ATTEND Internal Medicine
PROC: XW033E5 Introduction of Remdesivir Anti-infective into Peripheral Vein, Percutaneous Approach, New Technology Group 5 (ICD-10-PCS; 2020-04-08)
PROC: XW13325 Transfusion of Convalescent Plasma (Nonautologous) into Peripheral Vein, Percutaneous Approach, New Technology Group 5 (ICD-10-PCS; 2020-04-09)
PROC: 5A09357 Assistance with Respiratory Ventilation, Less than 24 Consecutive Hours, Continuous Positive Airway Pressure (ICD-10-PCS; principal; 2020-04-11)
PROC: 5A09357 Assistance with Respiratory Ventilation, Less than 24 Consecutive Hours, Continuous Positive Airway Pressure (ICD-10-PCS; 2020-04-12)
PROC: 5A09357 Assistance with Respiratory Ventilation, Less than 24 Consecutive Hours, Continuous Positive Airway Pressure (ICD-10-PCS; 2020-04-13)
PROC: 5A09357 Assistance with Respiratory Ventilation, Less than 24 Consecutive Hours, Continuous Positive Airway Pressure (ICD-10-PCS; 2020-04-14)
PROC: 5A12012 Performance of Cardiac Output, Single, Manual (ICD-10-PCS; 2020-04-14)
DX: A41.89 Other specified sepsis (principal); U07.1 COVID-19; J96.02 Acute respiratory failure with hypercapnia; N17.0 Acute kidney failure with tubular necrosis; E11.65 Type 2 diabetes mellitus with hyperglycemia; D68.59 Other primary thrombophilia; J12.82 Pneumonia due to coronavirus disease 2019; E11.9 Type 2 diabetes mellitus without complications; I10 Essential (primary) hypertension; Z79.82 Long term (current) use of aspirin; I46.9 Cardiac arrest, cause unspecified
CPT/HCPCS: 36600; 82962; 83880; 85378; 87804; 97110-GP; 97116-GP; G0378; J0456; J0696; J1100; J1644; J1650; J1815; J1940; J2405; J2543; J7040; J7050; J7060; Q0163; Q9967; U0003